=== PATIENT | female | born 1955 | race African-American/Black ===

== ENCOUNTER 2018-12-13 08:23 | Emergency (ER) | payer OTHER ==
[~2018-12-13] VITALS: Ht 157.5 cm; Wt 61.2 kg
[2018-12-13 08:35] VITALS: BP 152/72
[2018-12-13] MEDS ORDERED: DIPHTH,PERTUSS(ACELL),TET TOX 0.5 ML DISP.SYRIN. VAX IM ONE (09:00)
--- NOTE | 2018-12-13 09:15 | PHYS DOC ---
Past Medical History Past Medical History: Other Additional Past Medical Histor: breast cancer Past Surgical History: Hysterectomy Additional Past Surgical Histo: gallstone surgery, L mastectomy Alcohol Use: None Drug Use: None Adult General Chief Complaint Chief Complaint: HAND PROBLEM HPI HPI Patient is a 63 year old female who presents complaining of infection to the hands. 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 Patient states she's had this infection for a couple weeks. She states [facility] and was given prednisone which helped slightly but the infection did not go away, she states last week she noted some pus coming from some of her fingers. Patient denies any fever. Review of Systems Review of Systems Constitutional: Denies fever or chills [] Musculoskeletal: Denies back pain or joint pain [] Integument: Reports finger infection Neurologic: Denies headache, focal weakness or sensory changes [] All other systems were reviewed and found to be within normal limits, except as documented in this note. Current Medications Current Medications Current Medications Medications (Trade) Dose Ordered Sig/Ana Start Time Stop Time Status Last Admin Dose Admin Diphtheria/ Tetanus/Acell Pertussis (Boostrix) 0.5 ml ONCE ONCE 12/13/18 09:00 12/13/18 09:01 DC 12/13/18 09:09 0.5 ML Allergies Allergies Allergies Coded Allergies Type Severity Reaction Last Updated Verified No Known Drug Allergies 12/13/18 No Physical Exam Physical Exam Constitutional: Well developed, well nourished, no acute distress, non-toxic appearance. [] Skin: Ventral aspect of the left hand second, fourth, fifth fingers with diffuse crusty erythematous rash, this appears to be a fungal infection that has turned into bacterial. Similar lesions noted on the right pinky finger, index finger. Neurovascular exam is intact, no pus drainage noted on physical exam. Back: No tenderness, no CVA tenderness. [] Extremities: No tenderness, no cyanosis, no clubbing, ROM intact, no edema. [] Neurologic: Alert and oriented X 3, normal motor function, normal sensory function, no focal deficits noted. [] Psychologic: Affect normal, judgement normal, mood normal. [] Current Patient Data Vital Signs Vital Signs Date Time Temp Pulse Resp B/P (MAP) Pulse Ox O2 Delivery O2 Flow Rate FiO2 12/13/18 08:35 98.0 96 15 152/72 (98) 98 Room Air 98.0 EKG EKG [] Radiology/Procedures Radiology/Procedures [] Course & Med Decision Making Course & Med Decision Making Pertinent Labs and Imaging studies reviewed. (See chart for details) This is a 63-year-old female patient who works as a hairdresser in a - [place] [employer] who presents today with what appears to have been contact dermatitis from skin care products that turned into yeast infection and sone fingers have bacterial infection. Patient was advised to make sure she wears gloves all the time at work. She is given a tetanus injection and discharged with Bactrim, cephalexin/nystatin cream. Follow-up with real estate investment analyst in 2-4 weeks. Dragon Disclaimer Dragon Disclaimer This electronic medical record was generated, in whole or in part, using a voice recognition dictation system. Departure Departure Impression: Primary Impression: Infection of skin of finger Additional Impressions: Contact dermatitis Candidiasis, cutaneous Disposition: 01 HOME, SELF-CARE Condition: STABLE Referrals: UNKNOWN PCP NAME (PCP) HUE TARIQ MD follow up in one week Patient Instructions: Cutaneous Candidiasis, Skin Infections Additional Instructions: You were seen in the emergency room for skin infection on your fingers. We highly recommend you make sure you wear gloves at all times at work. Take the prescribed medications as ordered. Follow-up with your own doctor or the provided real estate investment analyst in 2-4 weeks. Scripts Nystatin/Triamcin (NYSTATIN-TRIAMCINOLONE CREAM) 15 Gm Cream..g. 1 FELICITAS TP BID, #60 GM 1 Refill Prov: ABRAHAN GRAY APRN 12/13/18 Sulfamethoxazole/Trimethoprim (BACTRIM DS TABLET) 1 Each Tablet 1 TAB PO BID, #20 TAB Prov: ABRAHAN GRAY APRN 12/13/18 Problem Qualifiers Additional Impressions: Contact dermatitis Contact dermatitis type: irritant Contact dermatitis trigger: cosmetics Qualified Codes: L24.3 - Irritant contact dermatitis due to cosmetics ABRAHAN GRAY APRN Dec 13, 2018 09:15
[2018-12-13] MEDS ORDERED: SULF1TAB24 PO (09:25)
[2018-12-13] MEDS ORDERED: NYST15CR2 TP (09:25)
== END 2018-12-13 09:30 | disposition home or self-care (01) ==
LOC: ER 08:23
DX: L24.3 Irritant contact dermatitis due to cosmetics (principal); L08.89 Other specified local infections of the skin and subcutaneous tissue; B37.2 Candidiasis of skin and nail
CPT/HCPCS: 90471; 90715; 99283